=== PATIENT | male | born 2005 | race Caucasian/White ===

== ENCOUNTER 2024-05-26 14:37 | Emergency (ER) | payer OTHER ==
[~2024-05-26] VITALS: Ht 167.6 cm; Wt 83.5 kg
[2024-05-26 15:01] VITALS: BP 120/76; PULSE 94; RESP 20; TEMP 99.5; O2SAT 97
[2024-05-26] MEDS ORDERED: CEPH-588 PO (15:33)
[2024-05-26] MEDS ORDERED: IBUP-1842 PO (15:33)
[2024-05-26 15:38] VITALS: BP 120/76; PULSE 94; RESP 20; TEMP 99.5; O2SAT 97
== END 2024-05-26 15:40 | disposition home or self-care (01) ==
LOC: MED 14:37
DX: L03.116 Cellulitis of left lower limb (principal); Z79.899 Other long term (current) drug therapy
CPT/HCPCS: 99283